=== PATIENT | male | born 1980 | race Caucasian/White ===

== ENCOUNTER 2017-03-29 13:38 | Emergency (ER) | payer BC ==
[2017-03-29 15:41] LABS: Hematocrit 48 % (42-52); Hemoglobin 16.6 g/dl (14.0-18.0); Mean Corpuscular HGB Conc 35 g/dl (31-36); Mean Corpuscular Hemoglobin 32 pg (27-31); Mean Corpuscular Volume 91 fL (80-94); Mean Platelet Volume 9 um3 (7.4-10.4); Red Blood Count 5.25 10^6/ul (4.0-5.4); Red Cell Distribution Width 13 % (10.5-15); White Blood Count 6.6 10^3/ul (3.5-10.8)
[2017-03-29 16:02] LABS: Albumin 4.4 g/dL (3.2-5.2); BUN/Creatinine Ratio 15.6 (8-20); C Reactive Protein 2.04 mg/L (< 5.00); Calcium 9.7 mg/dL (8.6-10.3); EGFR African American 121.5 (>60); EGFR Non-African American 94.4 (>60); Globulin 2.8 g/dL (2-4); Magnesium 1.9 mg/dL (1.9-2.7); Potassium 3.7 mmol/L (3.5-5.0); Total Bilirubin 0.7 mg/dL (0.2-1.0); Total Protein 7.2 g/dL (6.4-8.9)
--- NOTE | 2017-03-29 16:26 | RAD ---
INDICATION: Epigastric pain. COMPARISON: Comparison is made with a prior CT of the abdomen and pelvis from November 02, 2010. TECHNIQUE: Multiple real-time images of the right upper quadrant were obtained. FINDINGS: The gallbladder appear normal. No gallbladder wall thickening or pericholecystic fluid is present. No intra or extrahepatic ductal distention is present. The common bile duct measured 0.3 cm in diameter. The liver is normal in size and increased in echogenicity suggestive of fatty infiltration. No significant focal abnormality is seen. The pancreas is partially obscured due to overlying bowel gas. The right kidney is normal in size without evidence for hydronephrosis. IMPRESSION: 1. NORMAL EXAM OF THE GALLBLADDER. 2. FINDINGS SUGGESTIVE OF FATTY INFILTRATION OF THE LIVER.
--- NOTE | 2017-03-29 16:29 | RAD ---
INDICATION: Epigastric pain. COMPARISON: Comparison is made with prior chest x-ray study from June 14, 2016. TECHNIQUE: Dual-energy PA and lateral views of the chest were obtained. FINDINGS: The heart is within normal limits in size. Mediastinal and hilar contours appear within normal limits. The lungs are clear. No pleural effusion is present. No free intraperitoneal air is seen. IMPRESSION: NO EVIDENCE FOR ACTIVE CARDIOPULMONARY DISEASE.
[2017-03-29] MEDS ORDERED: Pantoprazole IV* 40 MG IV ONE (17:25)
[2017-03-29 18:12] LABS: Urine Bilirubin Negative (Negative); Urine Glucose Negative (Negative); Urine Nitrite Negative (Negative)
[2017-03-29] MEDS ORDERED: Iohexol 300* (CONTRAST) 10 ML SDV IV ONE (18:46)
--- NOTE | 2017-03-29 19:24 | RAD ---
INDICATION: Epigastric pain. COMPARISON: Comparison is made with a prior CT of the abdomen and pelvis from November 02, 2010. TECHNIQUE: A CT scan of the abdomen and pelvis was performed with intravenous and oral contrast following intravenous injection of 148 ml of Omnipaque 300 nonionic contrast. Contiguous axial sections were obtained from the lung bases through the symphysis pubis. Images were reconstructed in the coronal and sagittal planes. FINDINGS: There is mild dependent bilateral lower lobe subsegmental atelectasis. No pleural effusion is present. The liver is decreased in attenuation consistent with fatty infiltration without focal abnormality. No calcified gallstones are seen. The pancreas appears to be within normal limits. The spleen is mildly enlarged and unchanged. The kidneys and adrenal glands are normal in size. No hydronephrosis is seen. There is a small 1 cm left renal cyst. The aorta is normal in caliber and demonstrates homogeneous contrast opacification. No significant enlarged retroperitoneal lymph nodes are seen. The stomach, small and large bowel appear nondistended. The patient is status post appendectomy by history. There is mild descending and sigmoid diverticulosis. There is no evidence for diverticulitis or colitis. No free intraperitoneal air or fluid is seen. No significant focal osseous abnormality is seen. IMPRESSION: 1. NO EVIDENCE FOR ACUTE FINDING OR CAUSE FOR THE PATIENT'S ABDOMINAL PAIN IS SEEN. 2. HEPATIC STEATOSIS. 3. MILD SPLENOMEGALY UNCHANGED.
[2017-03-29] MEDS ORDERED: Sucralfate TAB* 1 GM PO ONE (20:28)
--- NOTE | 2017-03-29 21:41 | ED ---
Sharad Braun Benjamin, scribed for Alexandru Alex MD on 03/29/17 at 1524 . HPI Chest Pain - HPI Summary HPI Summary: 36yo male c/o epigastric/low sternal CP for 1-2 weeks. Pt reports that his pain is intermittent, coming on 6-7 times per hours each lasting about 10-20 seconds. Pt denies nausea, diaphoresis or SOB, and denies anything aggravating his pain. Pt smokes and drinks occasionally and has hx of kidney stones. 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 No black stool noted in his BM. - History of Current Complaint Chief Complaint: EDAbdPain Time Seen by Provider: 03/29/17 14:53 Hx Obtained From: Patient Onset/Duration: Started Weeks Ago - 1-2 weeks ago, Still Present Timing: Intermittent Initial Severity: Moderate Current Severity: None Pain Intensity: 10 Pain Scale Used: 0-10 Numeric Chest Pain Location: Lower Sternal Chest Pain Radiates To:: Epigastric Aggravating Factor(s): Nothing Alleviating Factor(s): Spontaneous Resolution Associated Signs and Symptoms: Negative: Shortness of Breath, Diaphoresis, Nausea - Allergy/Home Medications Allergies/Adverse Reactions: Allergies Allergy/AdvReac Type Severity Reaction Status Date / Time [place] Allergy Hives Verified 03/29/17 14:27 PMH/Surg Hx/FS Hx/Imm Hx Endocrine/Hematology History: Denies: Hx Diabetes, Hx Thyroid Disease Cardiovascular History: Denies: Hx Hypertension, Hx Pacemaker/ICD Respiratory History: Denies: Hx Asthma, Hx Chronic Obstructive Pulmonary Disease (COPD), Other Respiratory Problems/Disorders GI History: Reports: Hx Gastroesophageal Reflux Disease - HX OF ACID REFLUX Denies: Hx Ulcer History: Reports: Hx Kidney Stones - 2 YEARS AGO WITH LITHOTRIPSY Sensory History: Denies: Hx Contacts or Glasses, Hx Hearing Aid Opthamlomology History: Denies: Hx Contacts or Glasses Psychiatric History: Denies: Hx Panic Disorder - Surgical History Surgery Procedure, Year, and Place: APPENDECTOMY A CHILD,. 2013 LITHOTRIPSY X 2, WITH STENT INSERTION, STENT NOW REMOVED, [facility] – [place] Hx Anesthesia Reactions: Yes - LITHOTRIPY 1ST ONE HEADACHE Infectious Disease History: No Infectious Disease History: Denies: Hx Hepatitis, Hx Human Immunodeficiency Virus (HIV), Traveled Outside the US in Last 30 Days - Family History Known Family History: Positive: Hypertension - Social History Occupation: Employed Full-time Lives: With Family Alcohol Use: Occasionally Alcohol Amount: SOCIALLY Substance Use Type: Reports: None Hx Tobacco Use: Yes Smoking Status (MU): Current Some Day Smoker Type: Cigarettes Amount Used/How Often: When Drinking Alcohol Have You Smoked in the Last Year: Yes Review of Systems Constitutional: Negative Negative: Skin Diaphoresis Eyes: Negative ENT: Negative Positive: Chest Pain - low sternal CP Respiratory: Negative Positive: Abdominal Pain - epigastric pain. Negative: Vomiting, Diarrhea, Nausea Musculoskeletal: Negative Skin: Negative Neurological: Negative Psychological: Normal All Other Systems Reviewed And Are Negative: Yes Physical Exam Vital Signs On Initial Exam: Initial Vitals Temp Pulse Resp BP Pulse Ox 97.6 F 89 17 129/77 99 03/29/17 13:41 03/29/17 13:41 03/29/17 13:41 03/29/17 13:41 03/29/17 13:41 - [place] Coma Scale Coma Scale Total: 15 Diagnostics - Vital Signs Vital Signs Temp Pulse Resp BP Pulse Ox 03/29/17 13:41 97.6 F 89 17 129/77 99 - Laboratory Lab Results: Lab Results 03/29/17 03/29/17 03/29/17 Range/Units 15:30 15:30 15:30 WBC 6.6 (3.5-10.8) 10^3/ul RBC 5.25 (4.0-5.4) 10^6/ul Hgb 16.6 (14.0-18.0) g/dl Hct 48 (42-52) % MCV 91 (80-94) fL MCH 32 H (27-31) pg MCHC 35 (31-36) g/dl RDW 13 (10.5-15) % Plt Count 151 (150-450) 10^3/ul MPV 9 (7.4-10.4) um3 Neut % (Auto) 70.4 (38-83) % Lymph % (Auto) 20.3 L (25-47) % [place] % (Auto) 7.5 (1-9) % Eos % (Auto) 1.3 (0-6) % Baso % (Auto) 0.5 (0-2) % Absolute Neuts (auto) 4.6 (1.5-7.7) 10^3/ul Absolute Lymphs (auto) 1.3 (1.0-4.8) 10^3/ul Absolute Monos (auto) 0.5 (0-0.8) 10^3/ul Absolute Eos (auto) 0.1 (0-0.6) 10^3/ul Absolute Basos (auto) 0 (0-0.2) 10^3/ul Absolute Nucleated RBC 0 10^3/ul Nucleated RBC % 0 Sodium 138 (133-145) mmol/L Potassium 3.7 (3.5-5.0) mmol/L Chloride 103 (101-111) mmol/L Carbon Dioxide 28 (22-32) mmol/L Anion Gap 7 (2-11) mmol/L BUN 14 (6-24) mg/dL Creatinine 0.90 (0.67-1.17) mg/dL Est GFR ( Amer) 121.5 (>60) Est GFR (Non-Af Amer) 94.4 (>60) BUN/Creatinine Ratio 15.6 (8-20) Glucose 88 (70-100) mg/dL Lactic Acid 1.1 (0.5-2.0) mmol/L Calcium 9.7 (8.6-10.3) mg/dL Magnesium 1.9 (1.9-2.7) mg/dL Total Bilirubin 0.70 (0.2-1.0) mg/dL AST 20 (13-39) U/L ALT 32 (7-52) U/L Alkaline Phosphatase 43 (34-104) U/L Troponin I 0.00 (<0.04) ng/mL C-Reactive Protein 2.04 (< 5.00) mg/L Total Protein 7.2 (6.4-8.9) g/dL Albumin 4.4 (3.2-5.2) g/dL Globulin 2.8 (2-4) g/dL Albumin/Globulin Ratio 1.6 (1-3) Lipase 16 (11.0-82.0) U/L Urine Color Urine Appearance Urine pH (5-9) Ur Specific [place] (1.010-1.030) Urine Protein (Negative) Urine Ketones (Negative) Urine Blood (Negative) Urine Nitrate (Negative) Urine Bilirubin (Negative) Urine Urobilinogen (Negative) Ur Leukocyte Esterase (Negative) Urine Glucose (Negative) 03/29/17 03/29/17 Range/Units 17:55 21:11 WBC (3.5-10.8) 10^3/ul RBC (4.0-5.4) 10^6/ul Hgb (14.0-18.0) g/dl Hct (42-52) % MCV (80-94) fL MCH (27-31) pg MCHC (31-36) g/dl RDW (10.5-15) % Plt Count (150-450) 10^3/ul MPV (7.4-10.4) um3 Neut % (Auto) (38-83) % Lymph % (Auto) (25-47) % [place] % (Auto) (1-9) % Eos % (Auto) (0-6) % Baso % (Auto) (0-2) % Absolute Neuts (auto) (1.5-7.7) 10^3/ul Absolute Lymphs (auto) (1.0-4.8) 10^3/ul Absolute Monos (auto) (0-0.8) 10^3/ul Absolute Eos (auto) (0-0.6) 10^3/ul Absolute Basos (auto) (0-0.2) 10^3/ul Absolute Nucleated RBC 10^3/ul Nucleated RBC % Sodium (133-145) mmol/L Potassium (3.5-5.0) mmol/L Chloride (101-111) mmol/L Carbon Dioxide (22-32) mmol/L Anion Gap (2-11) mmol/L BUN (6-24) mg/dL Creatinine (0.67-1.17) mg/dL Est GFR ( Amer) (>60) Est GFR (Non-Af Amer) (>60) BUN/Creatinine Ratio (8-20) Glucose (70-100) mg/dL Lactic Acid (0.5-2.0) mmol/L Calcium (8.6-10.3) mg/dL Magnesium (1.9-2.7) mg/dL Total Bilirubin (0.2-1.0) mg/dL AST (13-39) U/L ALT (7-52) U/L Alkaline Phosphatase (34-104) U/L Troponin I 0.02 (<0.04) ng/mL C-Reactive Protein (< 5.00) mg/L Total Protein (6.4-8.9) g/dL Albumin (3.2-5.2) g/dL Globulin (2-4) g/dL Albumin/Globulin Ratio (1-3) Lipase (11.0-82.0) U/L Urine Color Yellow Urine Appearance Cloudy Urine pH 7.0 (5-9) Ur Specific [place] 1.021 (1.010-1.030) Urine Protein Negative (Negative) Urine Ketones Negative (Negative) Urine Blood Negative (Negative) Urine Nitrate Negative (Negative) Urine Bilirubin Negative (Negative) Urine Urobilinogen Negative (Negative) Ur Leukocyte Esterase Negative (Negative) Urine Glucose Negative (Negative) Result Diagrams: 03/29/17 15:30 03/29/17 15:30 Lab Statement: Any lab studies that have been ordered have been reviewed, and results considered in the medical decision making process. - Radiology CXR Xray Interpretation: No Acute Changes Radiology Interpretation Completed By: Radiologist - ED Physician reviewed the radiology report and agrees with the finding. - CT CT A/P W CT Interpretation: No Acute Changes - IMPRESSION: 1. NO EVIDENCE FOR ACUTE FINDING OR CAUSE FOR THE PATIENT'S ABDOMINAL PAIN IS SEEN. 2. HEPATIC STEATOSIS. 3. MILD SPLENOMEGALY UNCHANGED. CT Interpretation Completed By: Radiologist - ED Physician reviewed the radiology report and agrees with the finding. - EKG 1533. Cardiac Rate: NL - 72bpm EKG Rhythm: Sinus Rhythm EKG Interpretation: NO STEMI 2110. Cardiac Rate: Bradycardia - 59bpm EKG Rhythm: Sinus Bradycardia EKG Interpretation: NO STEMI - Additional Comments Diagnostic Additional Comments: US GALL BLADDER IMPRESSION: 1. NORMAL EXAM OF THE GALLBLADDER. 2. FINDINGS SUGGESTIVE OF FATTY INFILTRATION OF THE LIVER. ED Physician reviewed the radiology report and agrees with the finding. Re-Evaluation - Re-Evaluation First Eval Re-Evaluation Time: 17:26 Comment: Reviewed pt's lab and imaging results with the pt. Will put addition order of CT A/P W Second Eval Re-Evaluation Time: 20:32 Comment: Reviewed pt's CT results with the pt. Chest Pain Course/Dx - Course Course Of Treatment: Reviewed pt's list of medication and allergies. Blood pressure noted. 36 yr old male with two troponin negative. He has short episodes of epigastric pain with negative lipase, sono, ct. DC home on protonix and carafate. Referral to GI for followup. - Diagnoses Provider Diagnoses: Epigastric pain, Gastritis Discharge - Discharge Plan Condition: Good Disposition: HOME Prescriptions: Pantoprazole TAB (NF) [Protonix TAB (NF)] 40 mg PO DAILY #30 tab Sucralfate TAB* [Carafate*] 1 gm PO TID #30 tab Patient Education Materials: Gastritis (ED), Diet for Stomach Ulcers and Gastritis (ED), Abdominal Pain (ED) Referrals: Garrison Verma DO [Primary Care Provider] - Brandan Centeno MD [Medical Doctor] - The documentation as recorded by the Sharad sosa Benjamin accurately reflects the service I personally performed and the decisions made by , Alexandru Alex MD.
[2017-03-29 22:49] VITALS: BP 117/81
== END 2017-03-29 22:46 | disposition home or self-care (01) ==
LOC: ED 13:38
DX: K29.70 Gastritis, unspecified, without bleeding (principal); R10.13 Epigastric pain; R07.9 Chest pain, unspecified; Z72.0 Tobacco use
CPT/HCPCS: 36415; 71020; 74177; 76705; 80053; 81003; 83605; 83690; 83735; 84484; 85025; 86140; 87040; 93005; 96374; 99283; A9270-GY; Q9967

== ENCOUNTER 2017-09-06 07:30 | Emergency (ER) | payer BC ==
[2017-09-06 09:14] VITALS: BP 120/71
--- NOTE | 2017-09-07 16:12 | ED ---
Jose Braun Angela, scribed for Alexandru Malcolm MD on 09/06/17 at 0815 . Influenza-Like Illness - HPI Summary HPI Summary: This pt is a 37 y/o male presenting to [facility] c/o sore throat, nausea and fever since yesterday. He additionally notes myalgia, runny nose, vomiting, diaphoresis. He notes that at 10:00 yesterday morning he had a temperature of 102 F. He has taken Tylenol with mild relief. Denies headache. - History of Current Complaint Chief Complaint: EDFluSymptoms Time Seen by Provider: 09/06/17 07:59 Hx Obtained From: Patient Onset/Duration: Lasting Days - 1, Still Present Severity: Moderate Associated Signs & Symptoms: Fever, T Max - 102F, Myalgia, Sore Throat, Vomiting - Allergy/Home Medications Allergies/Adverse Reactions: Allergies Allergy/AdvReac Type Severity Reaction Status Date / Time No Known Allergies Allergy Verified 09/06/17 08:02 PMH/Surg Hx/FS Hx/Imm Hx Endocrine/Hematology History: Denies: Hx Diabetes, Hx Thyroid Disease Cardiovascular History: Denies: Hx Hypertension, Hx Pacemaker/ICD Respiratory History: Denies: Hx Asthma, Hx Chronic Obstructive Pulmonary Disease (COPD), Other Respiratory Problems/Disorders GI History: Reports: Hx Gastroesophageal Reflux Disease - HX OF ACID REFLUX Denies: Hx Ulcer History: Reports: Hx Kidney Stones - 2 YEARS AGO WITH LITHOTRIPSY Sensory History: Denies: Hx Contacts or Glasses, Hx Hearing Aid Opthamlomology History: Denies: Hx Contacts or Glasses Psychiatric History: Denies: Hx Panic Disorder - Surgical History Surgery Procedure, Year, and Place: APPENDECTOMY A CHILD,. 2013 LITHOTRIPSY X 2, WITH STENT INSERTION, STENT NOW REMOVED, [facility] [place] Hx Anesthesia Reactions: Yes - LITHOTRIPY 1ST ONE HEADACHE Infectious Disease History: No Infectious Disease History: Denies: Hx Hepatitis, Hx Human Immunodeficiency Virus (HIV), Traveled Outside the [place] in Last 30 Days - Family History Known Family History: Positive: Hypertension - Social History Alcohol Use: Occasionally Alcohol Amount: SOCIALLY Substance Use Type: Reports: None Hx Tobacco Use: Yes Smoking Status (MU): Current Some Day Smoker Type: Cigarettes Amount Used/How Often: When Drinking Alcohol Have You Smoked in the Last Year: Yes Review of Systems Positive: Fever, Skin Diaphoresis Positive: Sore Throat, Nasal Discharge Positive: Vomiting, Nausea Positive: Myalgia Negative: Headache All Other Systems Reviewed And Are Negative: Yes Physical Exam - Summary Physical Exam Summary: VITAL SIGNS: Reviewed. GENERAL: Patient is a well-developed and nourished male who is lying comfortable in the stretcher. Patient is not in any acute respiratory distress. HEAD AND FACE: No signs of trauma. No ecchymosis, hematomas or skull depressions. No sinus tenderness. EYES: PERRLA, EOMI x 2, No injected conjunctiva, no nystagmus. EARS: Hearing grossly intact. Ear canals and tympanic membranes are within normal limits. MOUTH: Oropharynx within normal limits. NECK: Supple, trachea is midline, no adenopathy, no JVD, no carotid bruit, no c- spine tenderness, neck with full ROM. CHEST: Symmetric, no tenderness at palpation LUNGS: Clear to auscultation bilaterally. No wheezing or crackles. CVS: Regular rate and rhythm, S1 and S2 present, no murmurs or gallops appreciated. ABDOMEN: Soft, non-tender. No signs of distention. No rebound no guarding, and no masses palpated. Bowel sounds are normal. EXTREMITIES: FROM in all major joints, no edema, no cyanosis or clubbing. NEURO: Alert and oriented x 3. No acute neurological deficits. Speech is normal and follows commands. SKIN: Dry and warm Triage Information Reviewed: Yes Vital Signs On Initial Exam: Initial Vitals Temp Pulse Resp BP Pulse Ox 98.6 F 89 16 120/76 98 09/06/17 07:41 09/06/17 07:41 09/06/17 07:41 09/06/17 07:41 09/06/17 07:41 Vital Signs Reviewed: Yes Diagnostics - Vital Signs Vital Signs Temp Pulse Resp BP Pulse Ox 09/06/17 07:41 98.6 F 89 16 120/76 98 - Laboratory Lab Statement: Any lab studies that have been ordered have been reviewed, and results considered in the medical decision making process. Flu Symptom Course/Dx - Course Assessment/Plan: This pt is a 37 y/o male presenting to [facility] c/o sore throat, nausea and fever since yesterday. He additionally notes myalgia, runny nose, vomiting, diaphoresis. He notes that at 10:00 yesterday morning he had a temperature of 102 F. He has taken Tylenol with mild relief. Denies headache. Rapid strep is negative. Influenza A and B are both negative. I believe the pt has an upper respiratory infection, therefore the pt will be discharged to home with follow up from PCP. The pt is instructed to take ibuprofen or Tylenol for pain and fever. Pt is hemodynamically stable, alert and oriented x3. - Diagnoses Provider Diagnoses: Upper respiratory infection Discharge - Discharge Plan Condition: Stable Disposition: HOME Patient Education Materials: Upper Respiratory Infection (ED) Referrals: Garrison Verma DO [Primary Care Provider] - Additional Instructions: Please follow up with your primary care provider. RETURN TO THE ED FOR ANY WORSENING SYMPTOMS. The documentation as recorded by the Jose sosa Angela accurately reflects the service I personally performed and the decisions made by me, Alexandru Malcolm MD.
== END 2017-09-06 09:13 | disposition home or self-care (01) ==
LOC: ED 07:30
DX: J06.9 Acute upper respiratory infection, unspecified (principal); F17.210 Nicotine dependence, cigarettes, uncomplicated
CPT/HCPCS: 87502; 87651; 99282

== ENCOUNTER 2019-01-19 19:54 | Emergency (ER) | payer BC ==
[2019-01-19 20:31] VITALS: BP 101/88
--- NOTE | 2019-01-19 21:02 | ED ---
Throat Pain/Nasal Congestion - HPI Summary HPI Summary: 38 yr old male with the complaint of sore throat. Onset of illness about a week ago with runny nose cold symptoms and sore throat. He then developed a worsening sore throat. No Stridor, no drooling. He has not had recent fever. he has fever a week ago with the cold symptoms. - History of Current Complaint Chief Complaint: UCGeneralIllness Time Seen by Provider: 01/19/19 20:40 - Allergies/Home Medications Allergies/Adverse Reactions: Allergies Allergy/AdvReac Type Severity Reaction Status Date / Time No Known Allergies Allergy Verified 01/19/19 20:32 Home Medications: Home Medications Varenicline Tartrate [Chantix] 1 mg PO BID 01/19/19 [History Confirmed 01/19/19] PMH/Surg Hx/FS Hx/Imm Hx Endocrine/Hematology History: Denies: Hx Diabetes, Hx Thyroid Disease Cardiovascular History: Denies: Hx Hypertension, Hx Pacemaker/ICD Respiratory History: Denies: Hx Asthma, Hx Chronic Obstructive Pulmonary Disease (COPD), Other Respiratory Problems/Disorders GI History: Reports: Hx Gastroesophageal Reflux Disease - HX OF ACID REFLUX Denies: Hx Ulcer History: Reports: Hx Kidney Stones - 2 YEARS AGO WITH LITHOTRIPSY Sensory History: Denies: Hx Contacts or Glasses, Hx Hearing Aid Opthamlomology History: Denies: Hx Contacts or Glasses Psychiatric History: Denies: Hx Panic Disorder - Surgical History Surgery Procedure, Year, and Place: APPENDECTOMY A CHILD,. 2013 LITHOTRIPSY X 2, WITH STENT INSERTION, STENT NOW REMOVED, [facility] [place] Hx Anesthesia Reactions: Yes - LITHOTRIPY 1ST ONE HEADACHE Infectious Disease History: No Infectious Disease History: Denies: Hx Hepatitis, Hx Human Immunodeficiency Virus (HIV), Traveled Outside the [place] in Last 30 Days - Family History Known Family History: Positive: Hypertension - Social History Occupation: Employed Full-time Lives: With Family Alcohol Use: Occasionally Alcohol Amount: SOCIALLY Substance Use Type: Reports: None Hx Tobacco Use: Yes Smoking Status (MU): Former Smoker Type: Cigarettes Amount Used/How Often: When Drinking Alcohol Have You Smoked in the Last Year: Yes Review of Systems Constitutional: Negative Positive: Sore Throat All Other Systems Reviewed And Are Negative: Yes Physical Exam Triage Information Reviewed: Yes Vital Signs On Initial Exam: Initial Vitals Temp Pulse Resp BP Pulse Ox 98.7 F 87 16 101/88 97 01/19/19 20:27 01/19/19 20:27 01/19/19 20:27 01/19/19 20:27 01/19/19 20:27 Vital Signs Reviewed: Yes Appearance: Positive: Well-Appearing, No Pain Distress Skin: Positive: Warm, Skin Color Reflects Adequate Perfusion Head/Face: Positive: Normal Head/Face Inspection Eyes: Positive: EOMI ENT: Positive: Pharyngeal erythema, TMs normal. Negative: Nasal congestion, Trismus, Hoarse voice, Sinus tenderness Neck: Positive: Nontender Respiratory/Lung Sounds: Positive: Clear to Auscultation, Breath Sounds Present Cardiovascular: Positive: RRR. Negative: Murmur Abdomen Description: Negative: Distended Musculoskeletal: Positive: Strength/ROM Intact Neurological: Positive: Sensory/Motor Intact, Alert, Oriented to Person Place, Time, CN Intact II-III, Normal Gait, Speech Normal Psychiatric: Positive: Normal Diagnostics - Vital Signs Vital Signs Temp Pulse Resp BP Pulse Ox 01/19/19 20:27 98.7 F 87 16 101/88 97 - Laboratory Lab Results: Lab Results 01/19/19 Range/Units 20:46 Group A Strep Rapid Negative (Negative) Lab Statement: Any lab studies that have been ordered have been reviewed, and results considered in the medical decision making process. EENT Course/Dx - Course Course Of Treatment: 38 yr old with URI, pharyngitis. Strep is negative. DC home. - Diagnoses Provider Diagnoses: Upper respiratory infection, Pharyngitis Discharge - Sign-Out/Discharge Documenting (check all that apply): Patient Departure All imaging exams completed and their final reports reviewed: No Studies - Discharge Plan Condition: Good Disposition: HOME Patient Education Materials: Pharyngitis (ED), Upper Respiratory Infection (ED) Referrals: Garrison Verma DO [Primary Care Provider] - 2 Days - Billing Disposition and Condition Condition: GOOD Disposition: Home
== END 2019-01-19 21:07 | disposition home or self-care (01) ==
LOC: UCCORT 19:54
DX: J06.9 Acute upper respiratory infection, unspecified (principal); J02.9 Acute pharyngitis, unspecified; Z87.891 Personal history of nicotine dependence
CPT/HCPCS: 87651; 99211; G0463

== ENCOUNTER 2019-02-07 13:30 | Emergency (ER) | payer BC ==
[2019-02-07 13:43] VITALS: BP 120/72
--- NOTE | 2019-02-07 13:45 | UC ---
Lower Extremity/Ankle HPI - HPI Summary HPI Summary: 38 yo male presents with RIGHT foot injury. He tells me that 2 days ago he was playing golf and a golf cart rolled onto his right foot. Had immediate pain, but was ambulatory. Later developed swelling and bruising. Since that time pain , bruising, and swelling has improved. He is ambulatory with no pain, however he does have one spot on the medial aspect of his foot that is very tender to touch -- he is concerned for fracture. Has not been taking anything OTC for his discomfort. - History of Current Complaint Chief Complaint: UCLowerExtremity Stated Complaint: FOOT INJURY Time Seen by Provider: 02/07/19 13:44 Hx Obtained From: Patient Onset/Duration: Sudden Onset Severity Initially: Mild Severity Currently: Mild Pain Intensity: 3 Pain Scale Used: 0-10 Numeric Able to Bear Weight: Yes - Allergies/Home Medications Allergies/Adverse Reactions: Allergies Allergy/AdvReac Type Severity Reaction Status Date / Time No Known Allergies Allergy Verified 02/07/19 13:43 PMH/Surg Hx/FS Hx/Imm Hx - Additional Past Medical History Additional PMH: None - Surgical History Surgical History: Yes Surgery Procedure, Year, and Place: APPENDECTOMY A CHILD,. 2013 LITHOTRIPSY X 2, WITH STENT INSERTION, STENT NOW [place]OV[place] [facility] [place] - Family History Known Family History: Positive: Hypertension - Social History Lives: With Family Alcohol Use: Occasionally Alcohol Amount: SOCIALLY Substance Use Type: None Smoking Status (MU): Former Smoker Type: Cigarettes Amount Used/How Often: When Drinking Alcohol Have You Smoked in the Last Year: Yes - Immunization History Most Recent Influenza Vaccination: Not the 2016/2016 Season Review of Systems All Other Systems Reviewed And Are Negative: Yes Constitutional: Positive: Negative Skin: Positive: Bruising - right foot Respiratory: Positive: Negative Cardiovascular: Positive: Negative Motor: Positive: Negative Neurovascular: Positive: Negative Musculoskeletal: Positive: Other: - right foot pain Neurological: Positive: Negative Psychological: Positive: Negative Physical Exam - Summary Physical Exam Summary: GENERAL: NAD. WDWN. No pain distress. SKIN: Mild ecchymosis at 1st MTP right foot. No open wound, abrasion, or laceration. CHEST: No accessory muscle use. Breathing comfortably and in no distress. CV: Pulses intact PT and DP. Cap refill <2seconds MSK: RIGHT FOOT: Mild ecchymosis about 1st MTP with mild TTP here. FROM all digits. No edema or obvious bony deformities. NEURO: Alert. Sensations intact and symmetric B/L LEs PSYCH: Age appropriate behavior. Triage Information Reviewed: Yes Vital Signs: Initial Vital Signs Temp 98 F 02/07/19 13:40 Pulse 94 02/07/19 13:40 Resp 15 02/07/19 13:40 BP 120/72 02/07/19 13:40 Pulse Ox 100 02/07/19 13:40 Vital Signs Reviewed: Yes Lower Extremity Course/Dx - Course Course Of Treatment: XR foot: IMPRESSION: No fracture of the right foot is noted. Suspect contusion. Advised to RICE and take tylenol for discomfort. F/u if symptoms do not improve. - Differential Dx/Diagnosis Provider Diagnosis: Foot contusion Discharge - Sign-Out/Discharge Documenting (check all that apply): Patient Departure All imaging exams completed and their final reports reviewed: Yes - Discharge Plan Condition: Stable Disposition: HOME Patient Education Materials: Foot Contusion (ED) Referrals: Garrison Verma DO [Primary Care Provider] - Additional Instructions: If you develop a fever, shortness of breath, chest pain, new or worsening symptoms - please call your PCP or go to the ED immediately. Your X-Ray did not show any evidence of a broken bone. I suspect you have a bone bruise to the area. Please rest, ice, and elevate your foot to reduce pain. This should heal within a few days with appropriate rest - Billing Disposition and Condition Condition: STABLE Disposition: Home
== END 2019-02-07 14:20 | disposition home or self-care (01) ==
LOC: UCEAST 13:30
DX: S90.31XA Contusion of right foot, initial encounter (principal); V86.49XA Person injured while boarding or alighting from other special all-terrain or other off-road motor vehicle, initial encounter; Y93.53 Activity, golf; Y92.39 Other specified sports and athletic area as the place of occurrence of the external cause; Y99.8 Other external cause status; Z87.891 Personal history of nicotine dependence
CPT/HCPCS: 99211; G0463

== ENCOUNTER 2019-05-07 15:19 | Emergency (ER) | payer BC ==
--- NOTE | 2019-05-07 18:06 | ED ---
Abdominal Pain/Male - HPI Summary HPI Summary: Patient is a 39 y/o M presenting to the ED for a chief complaint of non- radiating left flank pain since 05/03/19. Patient is present with his . Patient saw Dr. Gao on 05/03/19 and again on 05/05/19. Patient had an ultrasound and was told by Dr. Gao that the patient had a 7-8 mm kidney stone between his urethra and bladder, and another kidney stone that could not be visualized. Patient was told to wait for the stone to pass, but patient denies that the stone has passed. Patient was prescribed oxycodone, but has had constipation since starting the pain medication. Patient also admits nausea and vomiting due to the pain. Patient has a PMHx of kidney stones. Patient denies fever, myalgia, or headache. - History of Current Complaint Chief Complaint: EDFlankPain Stated Complaint: KIDNEY STONE PER PT Time Seen by Provider: 05/07/19 17:56 Hx Obtained From: Patient Onset/Duration: Sudden Onset, Lasting Days - Since 05/03/19, Still Present Timing: Constant, Lasting Days - Since 05/03/19 Severity Initially: Severe Severity Currently: Severe Pain Intensity: 9 Pain Scale Used: 0-10 Numeric Location: Flank - Left Radiates: No Aggravating Factor(s): Nothing Alleviating Factor(s): Nothing Associated Signs And Symptoms: Positive: Nausea, Vomiting, Other - Negative myalgia or headache. Negative: Fever - Allergies/Home Medications Allergies/Adverse Reactions: Allergies Allergy/AdvReac Type Severity Reaction Status Date / Time No Known Allergies Allergy Verified 02/07/19 13:43 PMH/Surg Hx/FS Hx/Imm Hx Previously Healthy: Yes Endocrine/Hematology History: Denies: Hx Diabetes, Hx Thyroid Disease Cardiovascular History: Denies: Hx Hypertension, Hx Pacemaker/ICD Respiratory History: Denies: Hx Asthma, Hx Chronic Obstructive Pulmonary Disease (COPD), Other Respiratory Problems/Disorders GI History: Reports: Hx Gastroesophageal Reflux Disease - HX OF ACID REFLUX Denies: Hx Ulcer History: Reports: Hx Kidney Stones - 2 YEARS AGO WITH LITHOTRIPSY Sensory History: Denies: Hx Contacts or Glasses, Hx Legally Blind, Hx Deafness, Hx Hearing Aid Opthamlomology History: Denies: Hx Contacts or Glasses, Hx Legally Blind EENT History: Denies: Hx Deafness Psychiatric History: Denies: Hx Panic Disorder - Surgical History Surgical History: Yes Surgery Procedure, Year, and Place: APPENDECTOMY A CHILD,. 2013 LITHOTRIPSY X 2, WITH STENT INSERTION, STENT NOW REMOVED, [facility] Hx Anesthesia Reactions: Yes - LITHOTRIPY 1ST ONE HEADACHE Infectious Disease History: No Infectious Disease History: Denies: Hx Hepatitis, Hx Human Immunodeficiency Virus (HIV), Traveled Outside the [place] in Last 30 Days - Family History Known Family History: Positive: Hypertension - Social History Occupation: Employed Full-time Lives: With Family Alcohol Use: Occasionally Alcohol Amount: SOCIALLY Hx Substance Use: No Substance Use Type: Reports: None Hx Tobacco Use: Yes Smoking Status (MU): Former Smoker Type: Cigarettes Amount Used/How Often: When Drinking Alcohol Have You Smoked in the Last Year: Yes Review of Systems Negative: Fever Positive: Abdominal Pain - Left flank, Vomiting, Nausea, Other - Positive constipation Negative: Myalgia Negative: Headache All Other Systems Reviewed And Are Negative: Yes Physical Exam - Summary Physical Exam Summary: Appearance: The patient is well-nourished in no acute distress and in no acute pain. Skin: The skin is warm and dry, and skin color reflects adequate perfusion. HEENT: The head is normocephalic and atraumatic. The pupils are equal and reactive. The conjunctivae are clear and without drainage. Nares are patent and without drainage. Mouth reveals moist mucous membranes, and the throat is without erythema and exudate. The external ears are intact. The ear canals are patent and without drainage. The tympanic membranes are intact. Neck: The neck is supple with full range of motion and non-tender. There are no carotid bruits. There is no neck vein distension. Respiratory: Chest is non-tender. Lungs are clear to auscultation and breath sounds are symmetrical and equal. Cardiovascular: Heart is regular rate and rhythm. There is no murmur or rub auscultated. There is no peripheral edema and pulses are symmetrical and equal. Abdomen: The abdomen is soft and non-tender. There are normal bowel sounds heard in all four quadrants and there is no organomegaly palpated. Musculoskeletal: There is no back tenderness noted. Extremities are non-tender with full range of motion. There is good capillary refill. There is no peripheral edema or calf tenderness elicited. Neurological: Patient is alert and oriented to person, place and time. The patient has symmetrical motor strength in all four extremities. Cranial nerves are grossly intact. Deep tendon reflexes are symmetrical and equal in all four extremities. Psychiatric: The patient has an appropriate affect and does not exhibit any anxiety or depression. Triage Information Reviewed: Yes Vital Signs On Initial Exam: Initial Vitals Temp Pulse Resp BP Pulse Ox 98.6 F 78 16 126/80 98 05/07/19 15:25 05/07/19 15:25 05/07/19 15:25 05/07/19 15:25 05/07/19 15:25 Vital Signs Reviewed: Yes Procedures - Sedation Patient Received Moderate/Deep Sedation with Procedure: No Diagnostics - Vital Signs Vital Signs Temp Pulse Resp BP Pulse Ox 05/07/19 17:46 99.0 F 77 18 133/92 98 05/07/19 15:25 98.6 F 78 16 126/80 98 - Laboratory Lab Statement: Any lab studies that have been ordered have been reviewed, and results considered in the medical decision making process. Abdominal Pain Male Course/Dx - Course Course Of Treatment: Mr. Ferrer presents with a known left ureteral lithiasis diagnosed and Dr. Malhotra's office by ultrasound. It's unknown the size of the stone. He has been treated with typical treatment including Percocet but comes in because his pain is uncontrolled. He was nontoxic in appearance with stable vitals. Labs have been sent and are pending. Urinalysis shows no sign of acute infectious problem. CT scan has been obtained and are read is pending. To my read he has approximal left 3-4 mm stone with mild hydronephrosis. Depending on his response to pain medication he will either go home or be admitted. - Diagnoses Provider Diagnoses: Ureterolithiasis Discharge ED - Sign-Out/Discharge Documenting (check all that apply): Sign-Out Patient Signing out patient TO: Jostin Fagan - Discharge Plan Condition: Stable Referrals: Garrison Verma DO [Primary Care Provider] - - Billing Disposition and Condition Condition: STABLE - Attestation Statements Document Initiated by Scribe: Yes Documenting Scribe: Karma Rosales Provider For Whom Scribe is Documenting (Include Credential): Macario Ni MD Scribe Attestation: IKarma, scribed for Macario Ni MD on 05/07/19 at 1842. Scribe Documentation Reviewed: Yes Provider Attestation: The documentation as recorded by the scribe, Karma Rosales accurately reflects the service I personally performed and the decisions made by me, Macario Ni MD Status of Scribe Document: Viewed
[2019-05-07] MEDS ORDERED: HYDROmorphone INJ1* 1 MG/ML SYRINGE IV SLOW PU ONE (18:16)
[2019-05-07] MEDS ORDERED: Ondansetron INJ* 2 MG/ML VIAL IV ONE (18:16)
[2019-05-07] MEDS ORDERED: Ketorolac INJ* 30 MG/ML 1 ML VIAL IV PUSH ONE (18:16)
[2019-05-07 18:29] LABS: Urine Appearance Clear; Urine Bacteria Absent (Absent); Urine Bilirubin Negative (Negative); Urine Blood 3+ (Negative); Urine Color Yellow; Urine Glucose Negative (Negative); Urine Ketones Negative (Negative); Urine Nitrite Negative (Negative); Urine Protein Negative (Negative); Urine Red Blood Cell 3+(>10/hpf) (Absent); Urine Specific Gravity 1.014 (1.010-1.030); Urine Squamous Epithelial Cell Present (Absent); Urine Urobilinogen Negative (Negative); Urine White Blood Cell Trace(0-5/hpf) (Absent)
--- NOTE | 2019-05-07 19:05 | ED ---
Progress - Progress Note Progress Note: Pt is a signout from Dr. Ni pending CT a/p results. - Results/Orders Results/Orders: CT a/p shows: 1. Approximately 0.2 cm obstructive calculus in the superior left ureter without significant hydronephrosis. 2. Additional nonobstructive 0.3 cm calyceal calculus in the left kidney. 3. Other chronic findings, as above. ED physician has reviewed this report. Course/Dx - Course Course Of Treatment: Patient is here with left flank pain with a history of kidney stones. Patient is failing outpatient treatment as given on constipation. Patient had a CT scan which showed a 2 mm stone. Patient evidence of obstruction. Patient has evidence of UTI or kidney dysfunction. Patient was encouraged to restart his pain medication and a stool softener. Patient discharged with Flomax and Zofran. Patient was encouraged to call his urologist in the morning. - Diagnoses Provider Diagnoses: Left ureteral stone Discharge ED - Sign-Out/Discharge Documenting (check all that apply): Patient Departure, Receiving Sign-Out Receiving patient FROM: Macario Ni - Discharge Plan Condition: Stable Disposition: HOME Prescriptions: Ondansetron TAB* [Zofran 4 MG Tab*] 4 mg PO Q8HR PRN #12 tab PRN Reason: Vomiting Tamsulosin CAP* [Flomax CAP*] 0.4 mg PO DAILY 30 Days #30 cap Patient Education Materials: Ureteral Stones (ED) Referrals: Garrison Verma DO [Primary Care Provider] - Gadiel Gao MD [Family Provider] - Additional Instructions: Start your Flomax and Zofran. Continue taking your prescribed pain medication, and start taking your stool softener to prevent constipation. Return to the emergency department with fever, chills, or any concerning symptoms. Call Dr. Gao in the morning. - Billing Disposition and Condition Condition: STABLE Disposition: Home - Attestation Statements Document Initiated by Salenaibshannon: Yes Documenting Scribe: Chely Gore Provider For Whom Charlotte is Documenting (Include Credential): Jostin Fagan MD. Scribe Attestation: Chely Braun, scribed for Jostin Fagan MD. on 05/07/19 at 2104. Scribe Documentation Reviewed: Yes Provider Attestation: The documentation as recorded by the scribe, Chely Gore accurately reflects the service I personally performed and the decisions made by me, Jostin Fagan MD. Status of Salenaibshannon Document: Viewed
[2019-05-07 19:24] LABS: ABS Basophils 0.1 10^3/ul (0-0.2); ABS Eosinophils 0.3 10^3/ul (0-0.6); ABS Lymphocytes 1.8 10^3/ul (1.0-4.8); ABS Monocytes 0.7 10^3/ul (0-0.8); ABS Neutrophils 4.9 10^3/ul (1.5-7.7); Eosinophil % 3.4 %; Hematocrit 46 % (42-52); Hemoglobin 15.7 g/dL (14.0-18.0); Lymphocyte % 23.4 %; Mean Corpuscular HGB Conc 34 g/dL (31-36); Mean Corpuscular Hemoglobin 31 pg (27-31); Mean Corpuscular Volume 91 fL (80-94); Mean Platelet Volume 9.4 fL (7.4-10.4); Platelet Count 164 10^3/uL (150-450); Red Blood Count 5.05 10^6 /uL (4.18-5.48); Red Cell Distribution Width 13 % (10-15); White Blood Count 7.7 10^3/uL (3.5-10.8)
[2019-05-07 19:45] LABS: Albumin 4.4 g/dL (3.2-5.2); Albumin/Globulin Ratio 1.9 (1-3); BUN/Creatinine Ratio 19.1 (8-20); C Reactive Protein 5.58 mg/L (<8.01); Calcium 9.6 mg/dL (8.6-10.3); EGFR Non-African American 88.4 (>60); Globulin 2.3 g/dL (2-4); Potassium 3.7 mmol/L (3.5-5.0); Total Bilirubin 0.5 mg/dL (0.2-1.0); Total Protein 6.7 g/dL (6.4-8.9)
[2019-05-07 20:20] VITALS: BP 100/80
--- NOTE | 2019-05-09 05:56 | ED ---
Imaging and Labs Follow Up Follow Up Type: Labs/Cultures Labs/Culture Result: Urine culture final grew strep group B [id number] Patient Communication/Plan: Patient was treated for kidney stone no other sign of infection Patient Communication/Plan: Nothing further required Provider Diagnoses: Left ureteral stone
== END 2019-05-07 20:19 | disposition home or self-care (01) ==
LOC: ED 15:19
DX: N20.1 Calculus of ureter (principal); N20.0 Calculus of kidney; K21.9 Gastro-esophageal reflux disease without esophagitis; Z87.891 Personal history of nicotine dependence
CPT/HCPCS: 36415; 74176; 80053; 81003; 81015; 83605; 85025; 86140; 87040; 87077; 87086; 96374; 96375; 99282; J1170; J1885; J2405